=== PATIENT | female | born 1940 | race Caucasian/White ===

== ENCOUNTER → 2017-02-03 | Outpatient (CLI) | payer OTHER ==
--- NOTE | 2017-02-03 14:49 | RAD ---
Bilateral renal sonography History: Acute renal failure. Findings: The longitudinal and AP and transverse dimensions of the right kidney are 10.9 cm and 5.4 cm and 6.7 cm respectively. The longitudinal and AP and transverse dimensions of the left kidney are 11.2 cm and 5.9 cm and 4.6 cm respectively. No hydronephrosis or renal mass or perinephric fluid collection is seen on either side. Urinary bladder is moderately distended and no intraluminal echodensities or masses are seen. IMPRESSION: Unremarkable renal sonogram. Moderate urinary bladder distention.
== END | disposition home or self-care (01) ==
LOC: US 13:51
PROVIDERS: ATTEND Internal Medicine Nephrology
DX: N17.9 Acute kidney failure, unspecified (principal); N32.89 Other specified disorders of bladder
CPT/HCPCS: 76770

== ENCOUNTER → 2020-05-03 | Outpatient (CLI) | payer OTHER ==
--- NOTE | 2020-05-03 14:58 | RAD ---
CT Head without contrast 05/03/2020 2:24 PM Indication: Reason: HEADACHE WITH NECK PAIN / Spl. Instructions: / History: Comparison: None Findings: No intracranial hemorrhage is seen. No evidence of acute territorial infarct is seen. Note that CT is limited in sensitivity for acute ischemia. Age-related atrophic changes are noted. Ther e is patchy periventricular and deep white matter hypoattenuation which is nonspecific, but most comm only relates to chronic small vessel disease. No abnormal extra axial fluid collection is identified . No mass effect or midline shift is seen. No acute osseous abnormalities are seen. Visualized masto id is no paranasal sinuses are clear. Impression: 1. No acute intracranial process identified 2. Age-related atrophy, and evidence of chronic small vessel disease as described CT DOSING PQRS STATEMENT: One or more of the following individualized dose reduction techniques were utilized for this examinat ion: 1. Automated exposure control 2. Adjustment of the mA and/or kV according to patient size 3. Use of iterative reconstruction technique Electronically signed by: Didier Lynch MD (05/03/2020 2:55 PM) [id number]
--- NOTE | 2020-05-03 17:27 | RAD ---
XR CERVICAL SPINE 2-3V History: Reason: NECK PAIN, DIFFICULTY MOVING NECK, WORSE ON LEFT SIDE / Spl. Instructions: / Histor y: Technique: 3 views cervical spine. Comparison: None. Findings: Degraded evaluation of the lower cervical spine due to overlying structures. Normal vertebral body he ight and alignment. No fracture. Moderate degenerative disc changes most prominent C5-C6 and C6-C7. P revertebral soft tissues unremarkable. Facet arthropathy. Normal alignment C1 on C2. Impression: 1. Moderate multilevel cervical spondylosis. Electronically signed by: Jori Doyle DO (05/03/2020 5:24 PM) [id number]
== END ==
LOC: RAD 14:02
PROVIDERS: ATTEND Family Medicine
DX: M47.812 Spondylosis without myelopathy or radiculopathy, cervical region (principal); R51.9 Headache, unspecified; G31.89 Other specified degenerative diseases of nervous system
CPT/HCPCS: 70450; 72040